=== PATIENT | female | born 1970 | race Caucasian/White ===

== ENCOUNTER 2019-08-09 13:01 | Outpatient (CLI) | payer BC, SELFPAY ==
--- NOTE | 2019-08-09 13:04 | ECG_ITS ---
Measurements Intervals [place] Rate: 77 P: 65 RI: 161 QRS: 1 QRSD: 117 T: 51 QT: 387 QTc: 439 Interpretive Statements SINUS RHYTHM DELAYED PRECORDIAL R/S TRANSITION MINIMAL Q WAVES- LATERAL LEADS BORDERLINE ECG Electronically Signed On 08-09-2019 14:22:23 ASSISTANT REAL ESTATE MANAGER by Sd Saldana D.O.
[2019-08-09 13:36] LABS: Hematocrit 40.4 % (37.0-47.0); Hemoglobin 13.4 g/dL (12.0-15.0)
[2019-08-09 14:02] LABS: Blood Urea Nitrogen 7 mg/dL (7-17); Calcium 9.5 mg/dL (8.4-10.2); Carbon Dioxide 27 mmol/L (22-30); Chloride 99 mmol/L (98-107); Estimated Glomerular Filt Rate > 60; Glucose 114 mg/dL (65-105); Sodium 140 mmol/L (137-145)
== END 2019-08-09 13:02 | disposition home or self-care (01) ==
LOC: ANHSURGERY 13:04
PROVIDERS: Anesthesiology; PCP Family Medicine; Visit Provider Obstetrics & Gynecology
DX: N93.9 Abnormal uterine and vaginal bleeding, unspecified (principal); E78.2 Mixed hyperlipidemia; E11.9 Type 2 diabetes mellitus without complications; D64.9 Anemia, unspecified; R94.31 Abnormal electrocardiogram [ECG] [EKG]
CPT/HCPCS: 36415; 80048; 85014; 85018; 86850; 86900; 86901; 93005

== ENCOUNTER 2019-08-16 00:29 | Day surgery (SDC) | payer BC, SELFPAY ==
[2019-08-05 15:08] VITALS: BMI 34.1
[2019-08-16] VITALS (15 sets, daily range): BP systolic 114–138; BP diastolic 60–86; PULSE 56–99; RESP 10–20; TEMP 35.8–36.8; O2SAT 94–100
--- NOTE | 2019-08-16 11:41 | PM.IMHP ---
H&P: HPI History of Present Illness Chief complaint: menorhaghia Narrative: Indira Lanier is a 48 year old female G3P# with a long history of abnormal uterine bleeding. Patient has tried hormone therapy and s/p ablation. Patient desires hysterectomy. Review of Systems Constitutional: Constitutional: Reports fatigue PMFSH Past Medical History Medical History Bilateral carpal tunnel syndrome Elevated blood pressure reading without diagnosis of hypertension Mixed hyperlipidemia Type 2 diabetes mellitus without complications Surgical History Surgical History delivery delivered H/O colectomy S/P endometrial ablation Family History Family History Mother Lung cancer Father Heart disease Hypertension COPD (chronic obstructive pulmonary disease) Heart attack Sibling History of colectomy Social History Social History Smoking status: Never smoker Second hand tobacco smoke exposure: Yes Alcohol intake: never Meds Home Medications and Allergies Home Medications Medication Instructions Recorded Confirmed Type atorvastatin 10 mg tablet 10 mg PO DAILY #90 tablet 05/06/19 08/05/19 Rx metformin 500 mg tablet 500 mg PO BID #180 tablet 05/06/19 08/05/19 Rx docusate sodium [Colace] 100 mg PO DAILY 08/05/19 08/05/19 History iron 1 tablet PO DAILY 08/05/19 08/05/19 History multivitamin 1 tablet PO DAILY 08/05/19 08/05/19 History Allergies Allergy/AdvReac Type Severity Reaction Status Date / Time ibuprofen Allergy Intermediate SWELLING Verified 08/05/19 15:10 SKIN GLUE Allergy Itching Uncoded 08/05/19 15:10 Exam Const: General: no acute distress Cardio: Rate: regular rate Rhythm: regular rhythm GI: GI Palp: Yes Soft to palpation : External Female Exam: normal external appearance Assessment and Plan Assessment and plan (1) Abnormal uterine bleeding (AUB): Code(s): N93.9 - Abnormal uterine and vaginal bleeding, unspecified Status: Acute Assessment and Plan: Scheduled for a Laparoscopic assisted vaginal hysterectomy salpingectomy. risk and benefits reviewed with patient.
[2019-08-16] MEDS: LACTATED RINGERS 1,000 ML 30 ML IV CONT ×2 (11:50→16:10)
--- NOTE | 2019-08-16 12:04 | P.PNAN_ITS ---
Anes - Initial Pre Proc Eval Procedure: Operation Date: 08/16/19 12:45 Proposed Procedures p Laparoscopic Assisted Vaginal Hysterectomy, With Bilateral Salpingo- Oophorectomy - Gamal Lynn MD Date/Time: 08/16/19 12:04 Surgeon: Gamal Lynn MD Pre Op Diagnosis: roxana Patient Data Age: 48 Gender: F Height: 5 ft 5 in Weight: 92.99 kg Allergies Allergy/AdvReac Type Severity Reaction Status Date / Time ibuprofen Allergy Intermediate SWELLING Verified 08/05/19 15:10 SKIN GLUE Allergy Itching Uncoded 08/05/19 15:10 Home Medications Medication Instructions Recorded Confirmed Type atorvastatin 10 mg tablet 10 mg PO DAILY #90 tablet 05/06/19 08/05/19 Rx metformin 500 mg tablet 500 mg PO BID #180 tablet 05/06/19 08/05/19 Rx docusate sodium [Colace] 100 mg PO DAILY 08/05/19 08/05/19 History iron 1 tablet PO DAILY 08/05/19 08/05/19 History multivitamin 1 tablet PO DAILY 08/05/19 08/05/19 History Patient hx anesthesia problems: none Family hx anesthesia problems: none PMFSH Past Medical History Medical History Abnormal uterine bleeding (AUB) Bilateral carpal tunnel syndrome Elevated blood pressure reading without diagnosis of hypertension Mixed hyperlipidemia Type 2 diabetes mellitus without complications Surgical History Surgical History delivery delivered H/O colectomy S/P endometrial ablation Family History Family History Mother Lung cancer Father Heart disease Hypertension COPD (chronic obstructive pulmonary disease) Heart attack Sibling History of colectomy Social History Social History Smoking status: Never smoker Second hand tobacco smoke exposure: Yes Alcohol intake: never Anes - Eval Final PreProcedure Day of Procedure 08/16/19 12:04 Patient weight: obese Heart: regular rate and rhythm Lungs: clear to auscultation Airway: Mallampati scale class II Neurological: alert and oriented Last oral intake: >/= 8 hours ASA classification: II Emergent: no Anesthetic plan: proceed Anesthesia type and monitoring: general ETT and standard monitoring Informed Consent: The patient's anesthetic plan and its attendant risks and benefits were discussed with the patient/family/POA. Questions were solicited and answers provided to the satisfaction of the patient/family/POA.
[2019-08-16 12:22] LABS: Glucose Point of Care 102 (65-105)
[2019-08-16] MEDS: ceFAZolin 2 GM/D5W 50 ML 2 GM/50 ML BAG IVPB (13:00)
[2019-08-16] MEDS: LIDO 1%/EPINEPHRINE 1:100,000 20 ML VIAL INFILTRATE (14:05)
--- NOTE | 2019-08-16 16:09 | PM.OP ---
Procedure Note - Brief Procedure Note - Brief Date of procedure: 08/16/19 Pre-op diagnosis: menorhaghia fibroids Post-op diagnosis: same Procedure performed: LAVH salpingectomy Anesthesia: GETA Surgeon: Gamal Lynn MD Estimated blood loss (mL): 400 Urine output (mL): 350 Drains: Yes Packing: Yes Pathology: yes Complications: None Condition: stable Disposition: PACU Findings: enlarged uterus bilateral ovarian cyst ruptured( clear fluid)
[2019-08-16 16:30] LABS: Glucose Point of Care 156 (65-105)
--- NOTE | 2019-08-16 16:42 | SUR.PHASEI ---
1642 - family updated on pt's status
--- NOTE | 2019-08-16 16:46 | SUR.PHASEI ---
[id number] - family updated and sent to floor
--- NOTE | 2019-08-16 17:25 | PC.NURSE ---
This patient, Indira Lanier, was received from PACU per bed to room 289. Patient/family oriented to unit policies and routines
[2019-08-16] MEDS: DEXTROSE 5%/LACTATED RINGERS 1,000 ML 125 ML IV CONT (17:41)
[2019-08-16] MEDS: MORPHINE SULFATE 4 MG/ML INJ IV PUSH (17:42)
[2019-08-16] MEDS: ONDANSETRON INJ 4 MG/2 ML VIAL IV PUSH (17:47)
[2019-08-16] MEDS: SIMETHICONE 80 MG TAB.CHEW PO (22:18)
[2019-08-16] MEDS: SENNA/DOCUSATE SODIUM TABLET 2 TAB PO (22:18)
[2019-08-16 22:35] LABS: Glucose Point of Care 183 (65-105)
[2019-08-17 00:30] VITALS: BP 151/74; PULSE 84; RESP 18; TEMP 36.7; O2SAT 98
[2019-08-17 04:00] VITALS: BP 139/76; PULSE 77; RESP 18; TEMP 37; O2SAT 99
[2019-08-17 05:23] LABS: Glucose Point of Care 119 (65-105)
[2019-08-17 05:35] LABS: Basophils Percent Auto 0.2 % (0.2-1.2); Hematocrit 34.8 % (37.0-47.0); Hemoglobin 11.5 g/dL (12.0-15.0); Immature Granulocyte Percent A 0.7 % (0-0.5); Lymphocytes Absolute Auto 0.98 K/mm3 (0.9-3.2); Lymphocytes Percent Auto 6.6 % (18.3-44.2); Mean Corpuscular Hemoglobin 29.6 pg (26-34); Mean Corpuscular Volume 89.7 fl (80-100); Mean Platelet Volume 11.8 fl (7.4-10.4); Monocytes Absolute Auto 0.8 K/mm3 (0.1-0.6); Monocytes Percent Auto 5.6 % (2.6-8.5); Neutrophils Absolute Auto 12.9 K/mm3 (1.3-6.7); Neutrophils Percent Auto 86.9 % (45.5-73.1); Platelet Count Result 270 k/mm3 (150-375); Red Blood Count 3.88 M/mm3 (4.2-5.4); Red Cell Distribution Width 12.3 % (11.5-14.5); White Blood Count 14.8 K/mm3 (4.5-10.0)
[2019-08-17 05:53] LABS: Blood Urea Nitrogen 7 mg/dL (7-17); Carbon Dioxide 25 mmol/L (22-30); Chloride 94 mmol/L (98-107); Estimated CRCL calculation 159 ml/min; Estimated Glomerular Filt Rate > 60; Glucose 118 mg/dL (65-105); Potassium 4.1 mmol/L (3.4-5.0); Sodium 129 mmol/L (137-145)
[2019-08-17 06:34] LABS: Hemoglobin A1C 5.5 % (<5.7)
--- NOTE | 2019-08-17 07:08 | PC.NURSE ---
vaginal packing removed at 0500 on 08/17/19
--- NOTE | 2019-08-17 08:54 | PM.GYNPNOP ---
KEG RAISER - A/P Assessment and plan (1) Abnormal uterine bleeding (AUB): Code(s): N93.9 - Abnormal uterine and vaginal bleeding, unspecified Status: Acute Assessment and Plan: s/p LAVH will start naproxen for added pain control. Plan discharge home. Postoperative Procedures: Procedures Operation Date: 08/16/19 12:45 Actual Procedures Side Surgeon p Laparoscopic Assisted Vaginal Hysterectomy, With Bilateral Salpingectomy Gamal Lynn MD Time Spent With Patient Time: Total time spent is greater than 50% in coordination of care (as documented) at patient's floor/unit and/or counseling patient: Time with patient: less than 15 minutes KEG RAISER- PN:Subj Post-Op Subjective Date/time seen: 08/17/19 08:54 Interval history: nausea improved norco helpiing with pain. patient states can take naproxen Subjective: patient is tolerating oral intake KEG RAISER - PN: Obj Data Vital Signs Vital Signs: Vital Signs - 24 hr 08/16/19 12:20 08/16/19 16:10 08/16/19 16:20 Temperature 36.1 C L 36.5 C Pulse Rate 76 56 L 57 L Respiratory Rate 18 10 L 20 Blood Pressure 118/86 132/70 135/66 Pulse Oximetry 100 100 100 08/16/19 16:35 08/16/19 16:49 08/16/19 17:05 Temperature Pulse Rate 62 63 70 Respiratory Rate 12 20 12 Blood Pressure 122/61 114/60 128/73 Pulse Oximetry 100 94 94 08/16/19 17:20 08/16/19 17:30 08/16/19 17:45 Temperature 35.8 C L Pulse Rate 62 61 65 Respiratory Rate 20 20 Blood Pressure 125/72 124/73 127/74 Pulse Oximetry 96 96 97 08/16/19 18:00 08/16/19 18:30 08/16/19 19:00 Temperature Pulse Rate 77 81 89 Respiratory Rate Blood Pressure 121/75 129/78 136/83 Pulse Oximetry 96 97 97 08/16/19 20:00 08/16/19 21:00 08/16/19 21:54 Temperature 36.8 C Pulse Rate 79 89 99 Respiratory Rate 18 Blood Pressure 131/76 138/85 124/81 Pulse Oximetry 99 97 08/17/19 00:30 08/17/19 04:00 Temperature 36.7 C 37.0 C Pulse Rate 84 77 Respiratory Rate 18 18 Blood Pressure 151/74 H 139/76 Pulse Oximetry 98 99 Intake/Output Intake/Output: Intake & Output 08/14/19 08/15/19 08/16/19 08/17/19 23:59 23:59 23:59 23:59 Intake Total 300 1840 Output Total 350 1100 Balance -50 740 Meds/Results Medications: Active Medications Generic Name Dose Route Start Last Admin Trade Name Freq PRN Reason Stop Dose Admin Hydrocodone Bitart/Acetaminophen 1 tab 08/16/19 16:11 08/17/19 05:12 [place] 5-325 Mg PO 1 tab Q3H PRN Administration Pain Rated 5 or Less Hydrocodone Bitart/Acetaminophen 1 tab 08/16/19 16:11 08/16/19 20:14 [place] 10-325 Mg PO 1 tab Q3H PRN Administration Pain Rated 6 or Greater Atorvastatin Calcium 10 mg 08/17/19 09:00 Lipitor PO DAILY BRENDA Bisacodyl 10 mg 08/16/19 16:11 Dulcolax Suppository RECTAL ONCE PRN Constipation Dextrose 12.5 gm 08/16/19 22:45 Dextrose 50% Syringe IV PUSH PRN PRN Hypoglycemia Protocol Estrogens Conjugated 1 applic 08/16/19 14:10 08/16/19 14:13 Premarin Vaginal Cream VAGINAL 1 applic ONCE BRENDA Administration Fentanyl Citrate 25 mcg 08/16/19 12:05 08/16/19 17:06 Sublimaze IV PUSH 25 mcg Q2M PRN Administration Pain Glucagon 1 mg 08/16/19 22:45 Glucagon For Inj IM PRN PRN Hypoglycemia Protocol Glucose 15 gm 08/16/19 22:45 Glutose 15 PO PRN PRN Hypoglycemia Protocol Lactated Ringer's 1,000 mls @ 30 mls/hr 08/16/19 08:00 08/16/19 16:10 Lr - Lactated Ringers Iv IV CONT Infused .Q24H BRENDA Infusion Lactated Ringer's 1,000 mls @ 30 mls/hr 08/16/19 12:05 08/16/19 17:23 Lr - Lactated Ringers Iv IV CONT Infused .Q24H BRENDA Infusion Dextrose/Lactated Ringer's 1,000 mls @ 125 mls/hr 08/16/19 16:15 08/16/19 17:41 Dextrose 5%/Lactated Ringers IV CONT 125 mls/hr .Q8H BRENDA Administration Dextrose 1,000 mls @ 100 mls/hr 08/16/19 22:45 Dextrose 5% 1,000 Ml IVPB PRN PRN
[2019-08-17 09:00] VITALS: BP 132/76; PULSE 83; RESP 16; TEMP 36.7; O2SAT 98
[2019-08-17] MEDS: ATORVASTATIN 10 MG TABLET PO (09:36)
[2019-08-17] MEDS: SIMETHICONE 80 MG TAB.CHEW PO (09:36)
[2019-08-17] MEDS: NAPROXEN 500 MG TABLET PO (09:37)
[2019-08-17] MEDS: metFORMIN HCL 500 MG TABLET PO (09:37)
--- NOTE | 2019-08-17 09:50 | WPDANESPN ---
Anes - Prog Note Post-Op Date/Time: 08/17/19 09:50 Cardiovascular status: normal Respiratory status: normal Airway patency: baseline Mental status: baseline Post-Op hydration status: normal Vital Signs: Last Vital Signs Temp 37.0 C 08/17/19 04:00 Pulse 77 08/17/19 04:00 Resp 18 08/17/19 04:00 BP 139/76 08/17/19 04:00 Pulse Ox 99 08/17/19 04:00 I/O: Intake & Output 08/16/19 08/17/19 08/17/19 23:59 07:59 15:59 Intake Total 150 1840 Output Total 350 1100 Balance -200 740 Laboratory Tests 08/17/19 05:02 08/17/19 05:02 08/16/19 08/16/19 08/16/19 12:19 16:28 22:23 WBC RBC Hgb Hct MCV MCH MCHC RDW Plt Count MPV Immature Gran % (Auto) Neut % (Auto) Lymph % (Auto) [place] % (Auto) Eos % (Auto) Baso % (Auto) Lymph # (Auto) [place] # (Auto) Eos # (Auto) Baso # (Auto) Abs Immat Gran (auto) Absolute Neuts (auto) Absolute Nucleated RBC Nucleated RBC % Sodium Potassium Chloride Carbon Dioxide BUN Creatinine Estim Creat Clear Calc Estimated GFR Glucose POC Capillary Glucose 102 156 H 183 H Hemoglobin A1c Calcium 08/17/19 08/17/19 08/17/19 05:01 05:02 05:02 WBC 14.8 H RBC 3.88 L Hgb 11.5 L Hct 34.8 L MCV 89.7 MCH 29.6 MCHC 33.0 RDW 12.3 Plt Count 270 MPV 11.8 H Immature Gran % (Auto) 0.7 H Neut % (Auto) 86.9 H Lymph % (Auto) 6.6 L [place] % (Auto) 5.6 Eos % (Auto) 0.0 Baso % (Auto) 0.2 Lymph # (Auto) 0.98 [place] # (Auto) 0.8 H Eos # (Auto) 0.0 Baso # (Auto) 0.0 Abs Immat Gran (auto) 0.10 H Absolute Neuts (auto) 12.9 H Absolute Nucleated RBC 0.0 Nucleated RBC % 0.0 Sodium 129 L Potassium 4.1 Chloride 94 L Carbon Dioxide 25 BUN 7 Creatinine 0.40 L Estim Creat Clear Calc 159 Estimated GFR > 60 Glucose 118 H POC Capillary Glucose 119 H Hemoglobin A1c Calcium 9.0 08/17/19 05:26 WBC RBC Hgb Hct MCV MCH MCHC RDW Plt Count MPV Immature Gran % (Auto) Neut % (Auto) Lymph % (Auto) [place] % (Auto) Eos % (Auto) Baso % (Auto) Lymph # (Auto) [place] # (Auto) Eos # (Auto) Baso # (Auto) Abs Immat Gran (auto) Absolute Neuts (auto) Absolute Nucleated RBC Nucleated RBC % Sodium Potassium Chloride Carbon Dioxide BUN Creatinine Estim Creat Clear Calc Estimated GFR Glucose POC Capillary Glucose Hemoglobin A1c 5.5 Calcium Post-procedural complaints: none Patient Feedback: Patient satisfied with anesthetic care.
[2019-08-17 13:13] LABS: Glucose Point of Care 115 (65-105)
--- NOTE | 2019-08-17 13:52 | PC.NURSE ---
1300 Pt stated feels light headed and dizzy. BS 115 @ 1308, advised pt to eat some lunch she stated she wants to go home. Had her eat some pudding before D/C. 1330 Pt states she feels better and will eat lunch at home. D/C packet gone over and Pt V/U'd.
--- NOTE | 2019-08-17 16:42 | OP_ITS ---
DATE OF PROCEDURE: 08/16/2019 PREOPERATIVE DIAGNOSIS: Abnormal uterine bleeding. POSTOPERATIVE DIAGNOSES: 1. Abnormal uterine bleeding. 2. Uterine fibroids. PROCEDURE: Laparoscopic-assisted vaginal hysterectomy and salpingectomy. ANESTHESIA: General. ESTIMATED BLOOD LOSS: 100 cc. DESCRIPTION OF PROCEDURE: After adequate anesthesia, the patient was placed in a dorsal lithotomy position, prepped and draped in the usual manner for laparoscopic procedure. Speculum was placed into the vagina. A single-tooth tenaculum was used to grasp the anterior lip of the cervix. The uterus was sounded to 10 cm. [place] manipulator was inserted. The bivalve speculum was removed. At this time, infraumbilical area was injected with 1% lidocaine with epinephrine. An infraumbilical vertical skin incision was made with Veress needle, which was inserted into the abdominal cavity. Aspiration was negative. The abdomen was insufflated with carbon dioxide. After adequate insufflation, the Veress needle was removed and a 5 mm trocar was advanced under direct visualization with the laparoscope and visualization of pelvic structures were noted. At this time, a two 5 mm skin incisions were made in the right and left quadrant and 5 mm trocars were advanced into the abdominal cavity under direct visualization for instrumentation. Evaluation of the pelvis revealed an enlarged uterus and ovary had small bilateral simple cysts. The cul-de-sac was clean and the ureters were noted to be deep in the pelvis. At this time, the right cornu was grasped and the right fallopian tube, utero-ovarian ligament, and round ligaments were doubly coagulated with bipolar electrocautery and transected without difficulty. The remainder of the uterine vessels, the anterior and posterior leaves of the broad ligament were coagulated and transected down to the level of uterine artery. A similar procedure was carried out on the left with the left uterine cornu identified. The left fallopian tube, utero-ovarian ligament, and round ligaments were doubly coagulated with electrocautery and transected and the remainder of the cardinal ligament, uterine vessels, anterior and posterior sheaths of the broad ligament were coagulated and transected in a similar manner to the level of the uterine artery. Uterine artery was identified, doubly coagulated, and transected. The laparoscope was removed. Incision was made to the vaginal hysterectomy. The [place] manipulator was removed. The anterior and posterior leaves of the cervix were grasped with single-tooth tenaculum and a circumferential injection with 1% lidocaine with epinephrine was made at the cervical vaginal portion and a circumferential incision was then made at the cervical vaginal portion. Anterior-posterior colpotomies were accomplished with a combination of blunt and sharp dissection. The right uterosacral ligaments were clamped, transected, and ligated with 0 Vicryl suture. The left uterosacral ligaments were clamped, transected, and ligated with 0 Vicryl suture. The parametrial tissue and uterine artery were then clamped bilaterally and transected and ligated with 0 Vicryl suture bilaterally. Uterus was then removed and passed off the operative field. The pedicles were evaluated. The uterosacral ligaments were suture fixated into the vaginal cuff angles and the vaginal cuff was then closed in a running locked fashion with 0 Vicryl suture. Hemostasis was noted. The vagina was packed with moist laparotomy sponges. The abdomen was re-insufflated and the laparoscope was reinserted. Evaluation revealed no bleeding. The trocars were removed under direct visualization and the carbon dioxide was allowed to escape from the abdomen prior to removing the infraumbilical trocar sheath. The skin incisions were closed with 4-0
== END 2019-08-17 13:38 | disposition home or self-care (01) ==
LOC: ANHSURGERY 10:40 → ANHOB2 17:38
PROVIDERS: PCP Family Medicine; Visit Provider Obstetrics & Gynecology
PROC: 0UT9FZZ Resection of Uterus, Via Natural or Artificial Opening With Percutaneous Endoscopic Assistance (ICD-10-PCS; CPT 58554; principal; 2019-08-16 12:45)
DX: N93.9 Abnormal uterine and vaginal bleeding, unspecified (principal); D25.0 Submucous leiomyoma of uterus; D25.1 Intramural leiomyoma of uterus; N80.0 Endometriosis of uterus; E78.2 Mixed hyperlipidemia; E11.9 Type 2 diabetes mellitus without complications; R03.0 Elevated blood-pressure reading, without diagnosis of hypertension; Z79.84 Long term (current) use of oral hypoglycemic drugs; Z90.49 Acquired absence of other specified parts of digestive tract; E66.9 Obesity, unspecified; Z68.35 Body mass index [BMI] 35.0-35.9, adult
CPT/HCPCS: 58554; S2900; 36415; 80048; 83036; 85025; 88307; 99199; A9270; J0131; J0690; J1100; J1170; J2250; J2270; J2405; J2704; J2710; J3010; J7030; J7120; J7121

== ENCOUNTER 2019-09-24 18:35 | Emergency (ER) | payer BC, SELFPAY ==
[2019-09-24] VITALS (20 sets, daily range): BP systolic 131–159; BP diastolic 76–98; PULSE 79–89; RESP 11–26; TEMP 36.6; O2SAT 98–100
--- NOTE | ~2019-09-24 | XR_ITS ---
EXAMINATION: XR chest 2V EXAM DATE: 09/24/2019 19:26 INDICATION: Mid chest pain, heart palpitations. TECHNIQUE: Frontal and lateral projections of the chest obtained and reviewed. Comparison is made to prior examination from 01/31/2011. FINDINGS: The lungs are clear. There are no pleural effusions. The cardiomediastinal silhouette is within normal limits. There is no pneumothorax suspected. The bones and soft tissues are unremarkab le. There are cholecystectomy clips. IMPRESSION: No acute cardiopulmonary findings. Reviewed, dictated and finalized at location A.
--- NOTE | 2019-09-24 18:48 | ED.ARRPALP ---
HPI - Arrhythmia/Palpitations General Chief Complaint: Arrhythmia/Palpitations Stated Complaint: palpitations Time Seen by Provider: 09/24/19 18:37 Source: patient and RN notes reviewed Mode of arrival: ambulatory Limitations: no limitations History of Present Illness HPI narrative: Pt is a 48 y/o female who presents to the ED with c/o heart palpitations starting 3 days ago. She notes that she has been feeling weird for the past several days. Pt states that she has been experiencing a rapid heart rate and skipped beats. She notes that she mainly notices her symptoms while at rest. Pt denies any recent CP or SOB. She notes that she has had similar symptoms previously, stating that she has previously followed with her PCP and had a Holter monitor placed for these symptoms. MD complaint: palpitations Onset (ago): day(s) (3) Context: occurred during rest Associated symptoms: denies other symptoms Related Data Home Medications Medication Instructions Recorded Confirmed docusate sodium [Colace] 100 mg PO DAILY 08/05/19 08/16/19 iron 1 tablet PO DAILY 08/05/19 08/16/19 multivitamin 1 tablet PO DAILY 08/05/19 08/16/19 Allergies Allergy/AdvReac Type Severity Reaction Status Date / Time ibuprofen Allergy Intermediate SWELLING Verified 08/16/19 12:18 SKIN GLUE Allergy Itching Uncoded 08/16/19 12:18 Review of Systems Review of Systems: All systems reviewed & are unremarkable except as noted in HPI and below Cardiovascular: Cardiovascular: Denies chest pain and Reports palpitations Respiratory: Respiratory: Denies dyspnea PMFSH Social History Social History Smoking status: Never smoker Second hand tobacco smoke exposure: Yes Alcohol intake: never Exam Narrative: Exam Narrative: APPEARANCE: No acute distress, nontoxic, resting in bed EYES: EOMI HEENT: Normocephalic, atraumatic, OMM RESPIRATORY: No respiratory distress Clear to auscultation bilaterally with no rhonchi wheezing or rales. CARDIOVASCULAR: Regular rate and rhythm without murmurs rubs or gallops. ABDOMINAL: Soft, nontender, nondistended, no rebound or guarding MUSCULOSKELETAl: Moves all extremities. No clubbing, cyanosis or edema. NEURO: Awake and alert. Following commands, speech normal, no focal deficits SKIN:: Warm, dry. No rashes lesions or abrasions PSYCHIATRIC: Normal affect/mood, Course Course Emergency Course: Patient placed on manager cardiac in ED. Patient having occasional PVCs Discussed with patient results of workup and diagnosis. Discussed need for follow-up with primary care, proper use of medication, and reasons to return to the emergency department. Patient understands and agrees to current treatment plan Vital Signs Vital signs: Vital Signs Temperature 97.9 F 09/24/19 18:39 Pulse Rate 83 09/24/19 18:39 Respiratory Rate 15 09/24/19 18:39 Blood Pressure 159/98 H 09/24/19 18:39 Pulse Oximetry 100 09/24/19 18:39 Temperature 97.9 F 09/24/19 18:39 Pulse Rate 84 09/24/19 20:01 Respiratory Rate 21 H 09/24/19 20:01 Blood Pressure 135/76 09/24/19 20:01 Pulse Oximetry 99 09/24/19 20:01 MDM - Arrhythmia/Palpitations Lab Data Result diagrams: 09/24/19 19:14 09/24/19 19:14 Labs: Lab Results 09/24/19 09/24/19 09/24/19 Range/Units 19:14 19:14 19:14 WBC 7.9 (4.5-10.0) K/mm3 RBC 4.30 (4.2-5.4) M/mm3 Hgb 12.2 (12.0-15.0) g/dL Hct 39.0 (37.0-47.0) % MCV 90.7 (80-100) fl MCH 28.4 (26-34) pg MCHC 31.3 L (32-36) g/dl RDW 13.0 (11.5-14.5) % Plt Count 281 (150-375) k/mm3 MPV 12.1 H (7.4-10.4) fl Immature Gran % (Auto) 0.5 (0-0.5) % Neut % (Auto) 63.7 (45.5-73.1) % Lymph % (Auto) 25.3 (18.3-44.2) % [place] % (Auto) 6.8 (2.6-8.5) % Eos % (Auto) 3.2 (0-4.4) % Baso % (Auto) 0.5 (0.2-1.2) % Lymph # (Auto) 2.00 (0.9-3.2) K/mm3 [place] # (Auto) 0.5 (0.
[2019-09-24 19:22] LABS: Basophils Percent Auto 0.5 % (0.2-1.2); Eosinophils Absolute Auto 0.3 K/mm3 (0-0.3); Eosinophils Percent Auto 3.2 % (0-4.4); Hemoglobin 12.2 g/dL (12.0-15.0); Immature Granulocyte Absolute 0.04 K/mm3 (0.00-0.031); Immature Granulocyte Percent A 0.5 % (0-0.5); Lymphocytes Percent Auto 25.3 % (18.3-44.2); Mean Corpuscular HGB Conc 31.3 g/dl (32-36); Mean Corpuscular Hemoglobin 28.4 pg (26-34); Mean Corpuscular Volume 90.7 fl (80-100); Mean Platelet Volume 12.1 fl (7.4-10.4); Monocytes Absolute Auto 0.5 K/mm3 (0.1-0.6); Monocytes Percent Auto 6.8 % (2.6-8.5); Neutrophils Percent Auto 63.7 % (45.5-73.1); Platelet Count Result 281 k/mm3 (150-375); White Blood Count 7.9 K/mm3 (4.5-10.0)
[2019-09-24 19:35] LABS: Alanine Aminotransferase 9 U/L (4-35); Alkaline Phosphatase 131 U/L (38-126); Aspartate Amino Transferase 18 U/L (14-36); Bilirubin,Total 0.2 mg/dL (0.2-1.3); Blood Urea Nitrogen 12 mg/dL (7-17); Carbon Dioxide 30 mmol/L (22-30); Chloride 102 mmol/L (98-107); Estimated CRCL calculation 104 ml/min; Estimated Glomerular Filt Rate > 60; Glucose 142 mg/dL (65-105); Magnesium 1.8 mg/dL (1.6-2.3); Potassium 3.6 mmol/L (3.4-5.0); Sodium 136 mmol/L (137-145)
[2019-09-24 19:36] LABS: Partial Thromboplastin Time 27.1 SECONDS (22.3-36.8)
[2019-09-24 19:46] LABS: Troponin I < 0.012 ng/mL (0.000-0.034)
== END 2019-09-24 21:13 | disposition home or self-care (01) ==
PROVIDERS: Emergency Provider Emergency Medicine; PCP Family Medicine
DX: I49.3 Ventricular premature depolarization (principal)
CPT/HCPCS: 36415; 71046; 80053; 83735; 84443; 84484; 85025; 85730; 99284

== ENCOUNTER 2019-12-16 15:25 | Outpatient (CLI) | payer BC, SELFPAY ==
--- NOTE | ~2019-12-16 | MM_ITS ---
EXAMINATION: MM screening elsa BI w [place] HISTORY: Screening mammogram TECHNIQUE: Craniocaudal and mediolateral oblique 3-D tomosynthesis images were obtained and synthetic 2-D images were generated. CAD analysis was submitted and interpreted. COMPARISON: 12/04/2018, 11/28/2017, 10/29/2016 bilateral digital screening mammogram examinations BREAST PARENCHYMAL COMPOSITION: The breasts are almost entirely fatty. FINDINGS: A benign appearing intramammary lymph node situated posteriorly in the upper outer quadrant of the left breast, stable since 10/29/2016. There is no evidence of suspicious mass, calcification, o r architectural distortion to suggest malignancy in either breast. There has been no suspicious inter dalia change. IMPRESSION: 1. No mammographic evidence of malignancy. 2. Recommend routine screening mammography in one year. BI-RADS Category 2: Benign finding(s). Reviewed, dictated and finalized at location A.
== END 2019-12-16 15:26 | disposition home or self-care (01) ==
LOC: ANHIMG 15:27
PROVIDERS: PCP Family Medicine; Visit Provider Obstetrics & Gynecology
DX: Z12.31 Encounter for screening mammogram for malignant neoplasm of breast (principal)
CPT/HCPCS: 77063; 77067

== ENCOUNTER → 2020-01-14 15:36 | Outpatient (CLI) | payer BC, SELFPAY ==
--- NOTE | ~2020-01-14 | XR_ITS ---
EXAMINATION: XR chest 2V EXAM DATE: 01/14/2020 15:54 INDICATION: Cough. TECHNIQUE: Frontal and lateral projections of the chest obtained and reviewed. Comparison is made to prior examination from 09/24/2019. FINDINGS: The lungs are clear. There are no pleural effusions. The cardiomediastinal silhouette is within normal limits. There is no pneumothorax suspected. The bones and soft tissues are unremarkab le. There is no significant interval change. IMPRESSION: No acute cardiopulmonary findings. Reviewed, dictated and finalized at location A.
== END ==
PROVIDERS: PCP Family Medicine; Visit Provider Family Medicine
DX: R05 Cough (principal)
CPT/HCPCS: 71046

== ENCOUNTER 2020-03-11 10:07 | Outpatient (CLI) | payer BC, SELFPAY ==
--- NOTE | 2020-03-11 16:56 | WPDPFTINT ---
PFT Interpretation PFT Interpretation: DOS: 03/11/2020 REQUESTING: Dr Munoz REASON FOR TESTING: shortness of breath PULMONARY FUNCTION TESTS Results are reproducible. Spirometry: FEV1 92%, FVC 97%, FEV1% 73%< all are normal. LKM63-41% is decreased at 62%. No bronchodilator was given. Lung volumes: TLC 100%, RV 100%, no air trapping. Increased airway resistance. Low ERV may be due to increased BMI. Diffusion: DLCO 73%, mildly decreased. Flow volume loop: Normal. IMPRESSION: Normal spirometry and lung volumes. Mild decrease in small airways flows. Mild decrease in diffusion. No bronchodilator was given. If asthma is a concern, a trial of bronchodilator can be considered. A methacholine challenge could be considered to exclude asthma. Decreased diffusion is not a feature of asthma. Decreased diffusion can be seen in anemia, early ILD, chronic thromboembolic disease, collagen vascular disease with pulmonary vascular involvement and other conditions. Dana Mojica MD
== END 2020-03-11 10:08 | disposition home or self-care (01) ==
PROVIDERS: PCP Family Medicine; Visit Provider Family Medicine
DX: R06.02 Shortness of breath (principal)
CPT/HCPCS: 94375; 94726; 94729

== ENCOUNTER → 2020-08-28 12:23 | Outpatient (CLI) | payer BC, SELFPAY ==
--- NOTE | ~2020-08-28 | CT_ITS ---
EXAMINATION: CT abdomen pelvis w con DATE: 08/28/2020 13:12 INDICATION: Left abdominal and pelvic pain. TECHNIQUE: Computed tomography (CT) of the abdomen and pelvis was performed with 100 mL Omnipaque-350 intravenous contrast. Automated exposure control and iterative reconstruction technique were employe d. The dose-length product was 1142.89 mGy-cm. COMPARISON: None FINDINGS: Calcified right middle lobe nodule along with calcified right hilar lymph node consistent with old gr anulomatous disease. Heart size is normal. No pericardial or pleural effusion. Cholecystectomy clips at the gallbladder fossa. Liver, spleen, pancreas, bilateral adrenal glands and kidneys are normal. B ladder is normal. Bowels including the appendix are normal. The uterus is not identified and has like ly been surgically resected. Bilateral ovaries are unremarkable. No free intraperitoneal gas or fluid . No pathologically enlarged abdominal or pelvic lymphadenopathy. Moderate disc height loss with vacu um phenomenon degenerative endplate changes at L5-S1. Otherwise mild spondylosis in the more cephalad lumbar and lower thoracic spine. IMPRESSION: 1. No acute intra-abdominal/pelvic process. Reviewed, dictated and finalized at location B. TE COMPUTER TERMINAL OPERATOR
[2020-08-28 13:01] LABS: Estimated Glomerular Filt Rate > 60
== END ==
PROVIDERS: PCP Internal Medicine; Visit Provider Internal Medicine Gastroenterology
DX: R10.84 Generalized abdominal pain (principal)
CPT/HCPCS: 74177; Q9967